=== PATIENT | male | born 1975 | race Caucasian/White ===

== ENCOUNTER 2024-12-05 13:36 | Emergency (ER) | payer OTHER ==
[~2024-12-05] VITALS: Ht 182.9 cm; Wt 106.6 kg
[2024-12-05 14:03] VITALS: BP 129/91; O2SAT 99
[2024-12-05] MEDS ORDERED: SWABABLE VALVE TRANSFER SET EA MC ONE (15:41)
[2024-12-05] MEDS ORDERED: IV NORMAL SALINE 250 ML IV ONE (15:41)
[2024-12-05] MEDS ORDERED: IOHEXOL 350 100 ML INFUS..BTL ONE (15:41)
== END 2024-12-05 15:45 | disposition left against medical advice (07) ==
LOC: ER 13:36
DX: R07.9 Chest pain, unspecified (principal); R94.31 Abnormal electrocardiogram [ECG] [EKG]; K21.9 Gastro-esophageal reflux disease without esophagitis; F41.9 Anxiety disorder, unspecified; E78.5 Hyperlipidemia, unspecified; Z88.0 Allergy status to penicillin; Z53.21 Procedure and treatment not carried out due to patient leaving prior to being seen by health care provider
CPT/HCPCS: A4606; A4663; Q9967